=== PATIENT | male | born 1960 | race Hispanic/Latino ===

== ENCOUNTER 2024-01-23 16:08 | Observation (INO) | payer MEDICARE, OTHER ==
[~2024-01-23] VITALS: Ht 175.3 cm; Wt 92.1 kg
[~2024-01-23 16:08] MED LIST changes: -SEVELAMER CARB800 MG PO
[2024-01-23 16:31] VITALS: TEMP 97.6
[2024-01-23 16:35] LABS: BASOPHILS # (AUTO) 0.1 (0.0-0.1); BASOPHILS % 0.9 % (0.0-1.0); EOSINOPHILS # (AUTO) 0.1 (0.0-0.4); EOSINOPHILS % 1.1 % (0.0-6.0); LYMPHOCYTES % 26.4 % (18.0-39.1); MEAN CORPUSCULAR HEMOGLOBIN 30.5 pg (28-32); MEAN CORPUSCULAR HGB CONC 31.6 g/dL (31-35); MEAN CORPUSCULAR VOLUME 96.4 fL (81-99); MONOCYTES # (AUTO) 0.6 (0.2-0.8); MONOCYTES % 8.5 % (4.4-11.3); NEUTROPHILS # (AUTO) 4.7 (2.1-6.9); PLATELET COUNT 136 x10e3/uL (140-360); RED BLOOD COUNT 3.94 x10e6/uL (4.3-5.7); RED CELL DISTRIBUTION WIDTH 15.1 % (11.7-14.4); WHITE BLOOD COUNT 7.39 x10e3/uL (4.8-10.8)
[2024-01-23 17:19] LABS: ALBUMIN 4.4 g/dL (3.5-5.0); ALBUMIN/GLOBULIN RATIO 1.1 (0.8-2.0); ANION GAP 29.5 mmol/L (8-16); BILIRUBIN,TOTAL 0.7 mg/dL (0.2-1.2); CALCIUM 10.7 mg/dL (8.4-10.2); CREATININE, SERUM 13.85 mg/dL (0.72-1.25); TOTAL PROTEIN 8.5 g/dL (6.5-8.1)
[2024-01-23 17:20] LABS: POTASSIUM 6.5 mmol/L (3.5-5.1)
[2024-01-23] MEDS: CALCIUM GLUC 1 G/50 ML NACL 50 ML IV SCH (17:45)
[2024-01-23] MEDS: SOD POLYSTYRENE SULFONATE SUSP 15 GM/60 ML BTL PO ONE (17:45)
[2024-01-23] MEDS: DEXTROSE 50% SYRINGE 50 ML IV STA (17:45)
[2024-01-23] MEDS: SODIUM BICARBONATE 8.4% INJ 50 ML SYR IV STA (17:46)
[2024-01-23] MEDS: INSULIN REGULAR, HUMAN 100 UNIT/1 ML IV ONE (17:47)
[2024-01-23] MEDS ORDERED: SODIUM CHLORIDE 0.9% 1000ML 2,000 ML ONE (17:51)
[2024-01-23 18:08] VITALS: PULSE 83; RESP 20; O2SAT 97
[2024-01-23] MEDS: ALBUTEROL SULF 0.083% NEB SOLN 3 ML NEB NEB STA (18:10)
[2024-01-23] MEDS ORDERED: CLONIDINE HCL 0.1 MG TAB PO PRN (20:30)
[2024-01-23] MEDS ORDERED: OMEGA 3 POLYUNSAT FATTY ACIDS 1000 MG SOFTGEL PO SCH (20:30)
[2024-01-23] MEDS ORDERED: ACETAMINOPHEN 325 MG TAB PO PRN (20:30)
[2024-01-23] MEDS ORDERED: ONDANSETRON HCL INJ 2MG/ML 2ML 2 MG/ML VIAL IV PRN (20:30)
[2024-01-23 21:24] VITALS: BP 152/99; PULSE 104; PULSE 83; RESP 16; RESP 20; TEMP 207.7; O2SAT 98
[2024-01-23] MEDS ORDERED: SEVELAMER CARB800 MG PO (22:35)
[2024-01-23 22:41] VITALS: BP 152/99; PULSE 83; RESP 20; O2SAT 98
[2024-01-23 23:16] VITALS: BP 152/99; PULSE 83; RESP 20; O2SAT 98
[2024-01-24] VITALS (7 sets, daily range): BP systolic 114–155; BP diastolic 76–95; PULSE 75–96; RESP 18–20; TEMP 97.8–98; O2SAT 98–100
[2024-01-24 05:56] LABS: BASOPHILS # (AUTO) 0.1 (0.0-0.1); BASOPHILS % 1.1 % (0.0-1.0); EOSINOPHILS # (AUTO) 0.1 (0.0-0.4); EOSINOPHILS % 1.7 % (0.0-6.0); HEMATOCRIT 37.4 % (38.2-49.6); HEMOGLOBIN 12.1 g/dL (14.0-18.0); LYMPHOCYTES # (AUTO) 1.6 (1.0-3.2); LYMPHOCYTES % 25.9 % (18.0-39.1); MEAN CORPUSCULAR HEMOGLOBIN 30.8 pg (28-32); MEAN CORPUSCULAR HGB CONC 32.4 g/dL (31-35); MEAN CORPUSCULAR VOLUME 95.2 fL (81-99); MONOCYTES # (AUTO) 0.6 (0.2-0.8); MONOCYTES % 10.2 % (4.4-11.3); NEUTROPHILS # (AUTO) 3.8 (2.1-6.9); NEUTROPHILS % 60.9 % (38.7-80.0); PLATELET COUNT 149 x10e3/uL (140-360); RED BLOOD COUNT 3.93 x10e6/uL (4.3-5.7); RED CELL DISTRIBUTION WIDTH 14.8 % (11.7-14.4)
[2024-01-24 06:33] LABS: ANION GAP 25.4 mmol/L (8-16); CALCIUM 9.9 mg/dL (8.4-10.2); CREATININE, SERUM 11.68 mg/dL (0.72-1.25); POTASSIUM 4.4 mmol/L (3.5-5.1)
[2024-01-24] MEDS: OLMESARTAN 20 MG TAB PO SCH (09:00)
[2024-01-24] MEDS: ATORVASTATIN 10 MG TAB PO SCH (09:21)
[2024-01-24] MEDS: SEVELAMER CARBONATE 800 MG TAB PO SCH (09:21)
[2024-01-24] MEDS: CLOPIDOGREL BISULFATE 75 MG TAB PO SCH (09:22)
[2024-01-24] MEDS: SODIUM CHLORIDE 0.9% 1000ML 2,000 ML ONE (14:18)
[2024-01-24] MEDS ORDERED: ALBUMIN 25% 12.5GM 0.25 GM/ML BTL IV PRN (16:30)
[2024-01-24] MEDS ORDERED: SODIUM CHLORIDE 0.9% 1000ML 2,000 ML IV PRN (16:30)
[2024-01-25 05:18] LABS: HEPATITIS B CORE AB TOTAL Negative; HEPATITIS B SURFACE AG (P) Negative
== END 2024-01-24 20:00 | disposition home or self-care (01) ==
LOC: ER 16:17 → ERHOLD 17:28 → MED/SURG 21:37
PROVIDERS: ADMIT Internal Medicine; ATTEND Internal Medicine
DX: E87.5 Hyperkalemia (principal); I12.0 Hypertensive chronic kidney disease with stage 5 chronic kidney disease or end stage renal disease; N18.6 End stage renal disease; Z99.2 Dependence on renal dialysis; D63.1 Anemia in chronic kidney disease; Z85.528 Personal history of other malignant neoplasm of kidney; Z90.5 Acquired absence of kidney; E78.00 Pure hypercholesterolemia, unspecified; K57.90 Diverticulosis of intestine, part unspecified, without perforation or abscess without bleeding; Z87.891 Personal history of nicotine dependence; Z79.899 Other long term (current) drug therapy
CPT/HCPCS: 36415 ×2; 80048; 80053; 82948; 85025 ×2; 86704; 86706; 87340; 93005; 94640; 94799 ×2; 99284; G0257; G0378 ×2; J0612; J1817; J7030 ×2; J7799

== ENCOUNTER → 2024-01-23 | Day surgery (SDC) | payer MEDICARE, OTHER ==
[~2024-01-23] MED LIST: ATORVASTATIN CA10 MG PO; BENICAR20 MG PO; CLOPIDOGREL75 MG PO; FLUVOXAMINE MA100 MG PO; MIDODRINE HCL5 MG PO; OMEGA 3 FISH O1 EACH PO; PRORENAL VITAL1 EACH PO; RENVELA0.8 GM PO; SEVELAMER CARB800 MG PO
[2024-01-23] MEDS: SODIUM CHLORIDE 0.9% 500ML 500 ML ONE (13:46)
[2024-01-23 14:04] LABS: BASOPHILS # (AUTO) 0.1 (0.0-0.1); BASOPHILS % 0.7 % (0.0-1.0); EOSINOPHILS # (AUTO) 0.1 (0.0-0.4); EOSINOPHILS % 1.1 % (0.0-6.0); HEMATOCRIT 39.8 % (38.2-49.6); HEMOGLOBIN 12.9 g/dL (14.0-18.0); LYMPHOCYTES % 28.2 % (18.0-39.1); MEAN CORPUSCULAR HEMOGLOBIN 30.8 pg (28-32); MEAN CORPUSCULAR HGB CONC 32.4 g/dL (31-35); MONOCYTES # (AUTO) 0.6 (0.2-0.8); NEUTROPHILS # (AUTO) 4.4 (2.1-6.9); NEUTROPHILS % 61.9 % (38.7-80.0); PLATELET COUNT 154 x10e3/uL (140-360); RED BLOOD COUNT 4.19 x10e6/uL (4.3-5.7); WHITE BLOOD COUNT 7.09 x10e3/uL (4.8-10.8)
[2024-01-23 14:17] LABS: INR 0.94; PROTHROMBIN TIME 13.1 seconds (11.9-14.5)
[2024-01-23 14:18] LABS: PARTIAL THROMBOPLASTIN TIME 30.3 seconds (23.8-35.5)
[2024-01-23 15:33] LABS: ANION GAP 29.2 mmol/L (8-16); CALCIUM 10.2 mg/dL (8.4-10.2); CREATININE, SERUM 13.59 mg/dL (0.72-1.25)
[2024-01-23 15:34] LABS: POTASSIUM 6.2 mmol/L (3.5-5.1)
== END | disposition home or self-care (01) ==
LOC: OR 13:37
PROVIDERS: ATTEND Internal Medicine Gastroenterology
DX: Z12.11 Encounter for screening for malignant neoplasm of colon (principal); Z01.810 Encounter for preprocedural cardiovascular examination; Z53.8 Procedure and treatment not carried out for other reasons
CPT/HCPCS: 36415; 80048; 85025; 85610; 85730; 93005; J7040

== ENCOUNTER → 2024-04-06 | Day surgery (SDC) | payer MEDICARE, OTHER ==
[~2024-04-06] MED LIST changes: +AMLODIPINE BESY10 MG PO; +LIDOCAINE HCL 2% LOCAL INJ 5 ML SDV VIAL INJ ONE; +PHENYLEPHRINE HCL 1% 10 MG/ML VIAL ONE; +PROPOFOL IV EMULSION 10 MG/ML 20 ML VIAL ONE; +PROPOFOL IV EMULSION 50 ML IV ONE; +SEVELAMER CARB800 MG PO
[2024-04-06 11:23] LABS: BASOPHILS # (AUTO) 0.1 (0.0-0.1); BASOPHILS % 0.6 % (0.0-1.0); EOSINOPHILS % 0.3 % (0.0-6.0); HEMOGLOBIN 12.8 g/dL (14.0-18.0); LYMPHOCYTES # (AUTO) 1.7 (1.0-3.2); LYMPHOCYTES % 21.7 % (18.0-39.1); MEAN CORPUSCULAR HEMOGLOBIN 31.8 pg (28-32); MEAN CORPUSCULAR VOLUME 99.5 fL (81-99); MONOCYTES # (AUTO) 0.7 (0.2-0.8); MONOCYTES % 8.3 % (4.4-11.3); NEUTROPHILS # (AUTO) 5.5 (2.1-6.9); NEUTROPHILS % 68.8 % (38.7-80.0); PLATELET COUNT 222 x10e3/uL (140-360); RED BLOOD COUNT 4.02 x10e6/uL (4.3-5.7); WHITE BLOOD COUNT 7.97 x10e3/uL (4.8-10.8)
[2024-04-06] MEDS: SODIUM CHLORIDE 0.9% 500ML 500 ML ONE (11:31)
[2024-04-06 11:44] LABS: INR 0.94; PARTIAL THROMBOPLASTIN TIME 27.5 seconds (23.8-35.5); PROTHROMBIN TIME 13.1 seconds (11.9-14.5)
[2024-04-06 11:51] LABS: ANION GAP 24.4 mmol/L (8-16); CALCIUM 10.8 mg/dL (8.4-10.2); CREATININE, SERUM 11.14 mg/dL (0.72-1.25); POTASSIUM 4.4 mmol/L (3.5-5.1)
[2024-04-06 13:59] VITALS: TEMP 97.5
[2024-04-06 14:30] VITALS: BP 147/92; PULSE 75; RESP 16; O2SAT 100
== END | disposition home or self-care (01) ==
LOC: OR 10:32
PROVIDERS: ATTEND Internal Medicine Gastroenterology
DX: Z12.11 Encounter for screening for malignant neoplasm of colon (principal); D12.3 Benign neoplasm of transverse colon; K62.1 Rectal polyp; K57.30 Diverticulosis of large intestine without perforation or abscess without bleeding; K64.8 Other hemorrhoids; I12.0 Hypertensive chronic kidney disease with stage 5 chronic kidney disease or end stage renal disease; N18.6 End stage renal disease; Z99.2 Dependence on renal dialysis; E78.5 Hyperlipidemia, unspecified; I25.10 Atherosclerotic heart disease of native coronary artery without angina pectoris; F41.9 Anxiety disorder, unspecified; Z88.6 Allergy status to analgesic agent; Z79.02 Long term (current) use of antithrombotics/antiplatelets; Z79.899 Other long term (current) drug therapy; Z95.5 Presence of coronary angioplasty implant and graft; Z86.711 Personal history of pulmonary embolism; Z86.718 Personal history of other venous thrombosis and embolism; Z86.16 Personal history of COVID-19; Z85.528 Personal history of other malignant neoplasm of kidney
CPT/HCPCS: 36415; 45385; 80048; 85025; 85610; 85730; 88305; J2003; J2371; J2704 ×2; J7040; 45378